=== PATIENT | male | born 1975 | race Caucasian/White ===

== ENCOUNTER → 2017-06-29 | Outpatient (CLI) | payer BC ==
[2017-06-29 13:03] LABS: SEMEN TIME OF COLLECTION 820
[2017-06-29 13:04] LABS: DAYS OF ABSTINENCE 2; METHOD OF COLLECTION MASTURBATION; SEMEN COLOR YELLOW-GRAY (GRY/GRYWHTE); SEMEN VOLUME 1.5 ML (>1.5); TRANSPORT PROBLEM NOT KEPT WARM; TYPE OF SPECIMEN CONTAINER STERILE
[2017-06-29 17:31] LABS: SPERM VIABILITY STAIN NOT INDICATED % (>58%)
== END | disposition home or self-care (01) ==
LOC: C.LAB 09:27
PROVIDERS: ATTEND Obstetrics & Gynecology
DX: Z31.41 Encounter for fertility testing (principal)